=== PATIENT | male | born 1940 | race Caucasian/White ===

== ENCOUNTER 2016-12-20 07:43 | Inpatient (IN) | payer MEDICARE, BC ==
[~2016-12-20 07:43] MED LIST: Bupivacaine 0.5%/EPINEPHrine 1:200,000 50 ML MDV ONE
[2016-12-20] MEDS ORDERED: HYDROmorphone/Normal Saline 15 MG/30 ML PCA IV PRN (07:57)
[2016-12-20] MEDS ORDERED: Naloxone 0.4 MG/ML SDV IVPUSH PRN (07:57)
[2016-12-20] MEDS ORDERED: Albuterol/Ipratropium 3.0-0.5 MG/3 ML Neb Soln NEB ONE (08:30)
[2016-12-20] MEDS: Dextrose 5%-Lactated Ringers 1,000 ML IV SCH ×2 (08:55→11:38)
[2016-12-20] MEDS ORDERED: fentaNYL 250 MCG/5 ML SDV ONE (09:12)
[2016-12-20] MEDS ORDERED: Midazolam 1 MG/ML 2 ML SDV ONE (09:12)
[2016-12-20] MEDS ORDERED: ceFAZolin 2 GM in Premix Bag 1 BAG IV ONE (09:15)
[2016-12-20] MEDS ORDERED: Ondansetron 4 MG/2 ML SDV ONE (09:16)
[2016-12-20] MEDS ORDERED: Neostigmine Methylsulfate 1 MG/ML 5 ML Syringe ONE (09:16)
[2016-12-20] MEDS ORDERED: Dexamethasone 4 MG/ML SDV ONE (09:16)
[2016-12-20] MEDS ORDERED: Propofol 200 MG/20 ML SDV ONE (09:16)
[2016-12-20] MEDS ORDERED: Rocuronium 50 MG/5 ML Vial ONE (09:16)
[2016-12-20] MEDS ORDERED: Meropenem 500 MG SDV ONE (10:17)
[2016-12-20] MEDS ORDERED: Albuterol/Ipratropium 3.0-0.5 MG/3 ML Neb Soln INH PRN (12:42)
[2016-12-20] MEDS ORDERED: Dextrose 5%-Lactated Ringers 1,000 ML IV SCH (12:45)
[2016-12-20] MEDS ORDERED: Ondansetron 4 MG/2 ML SDV IVPUSH PRN (12:45)
[2016-12-20] MEDS: ceFAZolin 2 GM in Sodium Chloride 0.9% 50 ML IV SCH (17:06)
[2016-12-20] MEDS: Albuterol/Ipratropium 3.0-0.5 MG/3 ML Neb Soln INH SCH ×2 (21:50→22:58)
[2016-12-21] MEDS: ceFAZolin 2 GM in Sodium Chloride 0.9% 50 ML IV SCH ×2 (00:30→07:58)
[2016-12-21 06:46] VITALS: BP 135/91
[2016-12-21] MEDS ORDERED: Pantoprazole 40 MG Tab.CR PO SCH (07:30)
[2016-12-21] MEDS ORDERED: Acetaminophen/oxyCODONE 325-5 MG Tab PO PRN (07:46)
[2016-12-21] MEDS: Albuterol/Ipratropium 3.0-0.5 MG/3 ML Neb Soln INH SCH ×2 (08:17→11:21)
[2016-12-21] MEDS ORDERED: PARoxetine 20 MG Tab PO SCH (09:00)
[2016-12-21] MEDS ORDERED: Finasteride 5 MG Tab PO SCH (09:00)
--- NOTE | 2016-12-21 12:58 | OR ---
DATE OF PROCEDURE: 12/20/2016 PREOPERATIVE DIAGNOSES: 1. Incarcerated umbilical hernia. 2. Incisional hernia. POSTOPERATIVE DIAGNOSES: 1. Incarcerated umbilical hernia. 2. Non-Incarcerated incisional hernia. 3. Chronic left parasternal hernia. 4. Extensive intraabdominal adhesions. OPERATIVE PROCEDURES: 1. Diagnostic laparoscopy with lysis of adhesions and a repair of incarcerated umbilical hernia with mesh (94517). 2. Repair of non-incarcerated incisional hernia with mesh (16601). 3. Repair of chronic left parasternal diaphragmatic hernia (37373). 4. Placement of Vicryl mesh to displace small and large bowel from the mesh as well as the pelvic and abdominal sidewalls (30694). ANESTHESIA: General. ASSISTANTS: Lala Mendez PA-C and EVELYN Dunbar student. INDICATIONS FOR PROCEDURE: This is a 76-year-old presenting with an incarcerated umbilical hernia and this being firmly pressing more symptomatic. Also on examination was noted to have a diastasis recti. This in itself would not warrant a repair, but there was also a trocar site incisional hernia located within that field as well. The plan is to proceed with a diagnostic laparoscopy, laparotomy if necessary, and repair of the hernias with mesh. Potential risks including bleeding, infection, injury to underlying viscera, problems with hernias recurring, mesh becoming infected and lastly remote possibility of cardiopulmonary, septic, or hemorrhagic complications leading to were discussed, and the patient wishes to proceed. DETAILS OF PROCEDURE: The patient was taken to the operating room and placed in the supine position. After general endotracheal anesthesia was induced, a Davis catheter was inserted and the abdomen prepped and draped. In the left lateral abdominal wall, a transverse incision was made and the peritoneal cavity entered under direct vision with Optiview trocar, inflated to 15 mmHg pressure with CO2. Laparoscope was reinserted. No underlying trocar insertion site injuries were seen. Eventually then 4 additional 5-mm trocars were placed, 2 on the right and 2 on the left and general exploration was undertaken. As expected, the patient was known to have the incarcerated umbilical hernia and this contained some omentum along with preperitoneal fat within it. As this was dissected free, the patient had an intact overlying skin, but essentially just dermis at the level of the umbilicus. As one dissected then further upward removing some additional adhesions from the midepigastric area, the trocar site hernia was identified. The falciform ligament was lying within this and was reduced and divided up to the point almost the midportion of the liver anteriorly. During the course of that dissection, the patient was noted to have a parasternal diaphragmatic hernia. This was chronic in appearance and it could either be congenital or traumatic in terms of the underlying cause. This contained some preperitoneal fat along with omentum within it as well. This area was then reduced, and at that point, the abdominal wall measured out for the mesh to be placed. The initial mesh was a 20.3 x 25.[address] mesh with the balloon positioning system. The intended upper and lower aspects of the mesh with mesh going to be placed in the long axis in the vertical midline. The sutures were placed on the polypropylene side of the mesh and these being 2-0 Vicryl stitch actually was then soaked in antibiotic-containing saline solution and then brought in the intraperitoneal location. It was then folded and oriented such that polypropylene side of the mesh faced the abdominal wall. The stab wounds were made where the sutures were to be pulled up and then these were then pulled up along as well as the inflation catheter over the abdominal wall at the center point of the mesh. The balloon was then inflated, pushing the mesh up against the abdominal wall, this was affixed in circumferentially with several tacking screws. Upon completion of that, the patient was felt to have a wide margin around the umbilical hernia as well as the incisional hernia. There was, however, a relatively small margin left at the parasternal hernia site. The balloon from the original mesh was then removed and then a second piece of mesh, this being a ventral ST hernia patch without the balloon system measuring 11.4 cm. This was then placed directly over the center of the parasternal hernia and then pulled up and then affixed to the underlying abdominal wall with the absorbable tacking screws as well. At this point, all the areas appeared to be satisfactorily controlled. There had been quite extensive adhesions between the small bowel and the omentum and the anterior abdominal wall. These had been taken down to limit recurrent adhesion formation in that location as well as along the pelvic and abdominal sidewalls. A 12-inch segment of Vicryl mesh was then placed. This was placed underneath the mesh and then from there directed down towards the pelvis anteriorly and the pelvic sidewalls. At this point, no further problems were noted. The fascia at the 12-mm site was closed with 0 Vicryl stitch, and then with trocars removed, peritoneal cavity deflated, incision was closed with some 4-0 Vicryl skin stitch. Physician medical assistant internal medicine, Lala Mendez, played an essential role in assisting in this case, helping to position the patient, retract structures as needed as well as suturing and cutting sutures when indicated. Her presence improved patient's safety and decreased operative time. Fady Martinez MD /[id number]
--- NOTE | 2016-12-22 02:40 | DISCH ---
ADMISSION DIAGNOSES: Incarcerated umbilical hernia, non-incarcerated incisional hernia, and left parasternal hernia. DISCHARGE DIAGNOSES: Diagnostic laparoscopy with repair of incarcerated umbilical hernia, non-incarcerated incisional hernia, and left parasternal hernia. Date of surgery 12/20/2016. HISTORY: Jacinto Nagy is a pleasant 76-year-old male with the above hernias. After preoperative evaluation and discussion of possible risks and possible complications, he wished to proceed with surgical procedure. HOSPITAL COURSE: Jacinto had his hernia surgery on 12/20/2016. He had no operative complications. On postop day #1, his activity was good. He tolerated the diet. Pain was controlled. He was able to be discharged to home. PHYSICAL EXAMINATION: GENERAL: Jacinto Nagy is a pleasant 76-year-old male. VITAL SIGNS: Height is 6 feet 1 inch, weight is 207 pounds. TPR is 98.5, 75, 16. Blood pressure 135/91. HEENT: Negative. NECK: Supple. HEART: Regular rate and rhythm. LUNGS: Clear. ABDOMEN: Dressings dry and intact. Abdominal binder is on. EXTREMITIES: Without peripheral edema. DISPOSITION: Discharged to home. CONDITION: Stable and improving. FOLLOWUP APPOINTMENT: Lala Mendez PA-C on 12/27/2016 at 9:15 a.m. HOME MEDICATIONS: Percocet 5/325 mg 1 to 2 every 4 hours p.r.n. pain, #40. He is to resume his home medications. DIET AFTER DISCHARGE: Usual diet as tolerated. Drink 8 to 10 glasses of water a day. ACTIVITY: As tolerated. No lifting greater than 10 pounds for 6 weeks. Driving, do not drive on pain medication. Shower bathing, may shower. Notify provider if any fever, increased pain. Wound incision care, keep site clean and dry. Wear abdominal binder with a pressure dressing (rolled up washcloth or rolled Kerlix) over hernia site. SPECIAL INSTRUCTION: Use incentive spirometer 10 times every hour while awake for two weeks.
== END 2016-12-21 11:15 | disposition home or self-care (01) | DRG 328 ==
LOC: JP.SDSSCHI 07:43 → JP.SDS 07:43 → EDSTATUS 11:30 → JP.MS 11:35
PROVIDERS: ADMIT Surgery; ATTEND Surgery
PROC: 0BQS4ZZ (ICD-10-PCS; principal; 2016-12-20)
PROC: 0WUF4JZ Supplement Abdominal Wall with Synthetic Substitute, Percutaneous Endoscopic Approach (ICD-10-PCS; principal; 2016-12-20)
PROC: 0WQF4ZZ Repair Abdominal Wall, Percutaneous Endoscopic Approach (ICD-10-PCS; principal; 2016-12-20)
PROC: 0BQR4ZZ (ICD-10-PCS; principal; 2016-12-20)
PROC: 3E0M05Z Introduction of Adhesion Barrier into Peritoneal Cavity, Open Approach (ICD-10-PCS; principal; 2016-12-20)
DX: K42.0 Umbilical hernia with obstruction, without gangrene (principal); K43.2 Incisional hernia without obstruction or gangrene; H90.5 Unspecified sensorineural hearing loss; M19.91 Primary osteoarthritis, unspecified site; J45.909 Unspecified asthma, uncomplicated; N40.0 Benign prostatic hyperplasia without lower urinary tract symptoms; G60.3 Idiopathic progressive neuropathy; K46.9 Unspecified abdominal hernia without obstruction or gangrene; K66.0 Peritoneal adhesions (postprocedural) (postinfection)
CPT/HCPCS: 36415; 80053; 83735; 84100; 85027; 88302; 93005; 94762; A9270-GY; C1781; J0690; J1100; J1170; J2185; J2250; J2405; J2704; J3010; J7042; J7050; J7620

== ENCOUNTER 2017-01-21 13:07 | Emergency (ER) | payer MEDICARE, BC ==
[2017-01-21 13:36] VITALS: BP 135/77
--- NOTE | 2017-01-21 13:56 | EDM.PDOC ---
ED HPI GENERAL MEDICAL PROBLEM - General Chief Complaint: Neurological Problem Stated Complaint: DIZZY AND LIGHTHEADED Time Seen by Provider: 01/21/17 13:28 Source of Information: Reports: Patient, Family, RN Notes Reviewed History Limitations: Reports: No Limitations - History of Present Illness INITIAL COMMENTS - FREE TEXT/NARRATIVE: 76-year-old gentleman presents emergency department today with complaint of dizziness with fall. States he is out working in the garden was kneeling down stood up felt back to the ground, denies any injury upon hitting the ground but states this event happened 3 times denies any shortness of breath chest pain nausea or vomiting states he has been drinking fluids - Related Data Allergies Allergy/AdvReac Type Severity Reaction Status Date / Time seasonal Allergy Cannot Uncoded 01/21/17 13:28 Remember Home Meds: Home Meds Albuterol [IJD: Ventolin HFA] 2 puff INH Q4H PRN 12/18/16 [History] Ascorbic Acid 500 mg PO DAILY 12/18/16 [History] Aspirin 81 mg PO DAILY 12/18/16 [History] Cholecalciferol (Vitamin D3) [Vitamin D3] 400 unit PO DAILY 12/18/16 [History] Cyanocobalamin (Vitamin B-12) [Cyanocobalamin Injection] 1,000 mcg IJ .Q30D [History] Finasteride [Proscar] 5 mg PO DAILY 12/18/16 [History] Flunisolide [Nasalide Nasal [place]] 0 ml NASBOTH BID 12/18/16 [History] Mometasone Furoate [Asmanex] 2 spray IH DAILY PRN 12/18/16 [History] Omeprazole 20 mg PO DAILY 12/18/16 [History] PARoxetine [Paxil] 10 mg PO BEDTIME 12/18/16 [History] Vitamin B Complex [B Complex] 1 each PO DAILY 12/18/16 [History] Loratadine [Claritin] 10 mg PO DAILY 12/20/16 [History] Past Medical History HEENT History: Reports: Allergic Rhinitis, Impaired Vision Cardiovascular History: Reports: Syncope Other Cardiovascular History: known to pass out with medical procedures Respiratory History: Reports: Asthma Genitourinary History: Reports: BPH Neurological History: Reports: Neuropathy, Peripheral, Other (See Below) Other Neuro History: progressive peripheral neuropathy Dermatologic History: Reports: Other (See Below) Other Dermatologic History: pilonidal cyst - Infectious Disease History Infectious Disease History: Reports: Measles Other Infectious Disease History: measles as a child - Past Surgical History HEENT Surgical History: Reports: Other (See Below) Other HEENT Surgeries/Procedures: parotid gland tumor, radiation, benign Respiratory Surgical History: Reports: None GI Surgical History: Reports: Cholecystectomy, Hernia, Inguinal, Hernia Repair/ Other Male Surgical History: Reports: Prostate Biopsy Neurological Surgical History: Reports: None Musculoskeletal Surgical History: Reports: Arthroscopic Knee, Knee Replacement Social & Family History - Family History Family Medical History: Noncontributory - Tobacco Use Smoking Status *Q: Never Smoker Used Tobacco, but Quit: Yes Month Tobacco Last Used: 1949 Second Hand Smoke Exposure: No - Caffeine Use Caffeine Use: Reports: Coffee, Soda Other Caffeine Use: 4-5 cups caffienated beverages - Alcohol Use Days Per Week of Alcohol Use: 2 Number of Drinks Per Day: 1 Total Drinks Per Week: 2 - Recreational Drug Use Recreational Drug Use: No ED ROS GENERAL - Review of Systems Review Of Systems: See Below Constitutional: Reports: No Symptoms HEENT: Reports: No Symptoms Respiratory: Reports: No Symptoms Cardiovascular: Reports: Syncope GI/Abdominal: Reports: No Symptoms : Reports: No Symptoms Musculoskeletal: Reports: No Symptoms Skin: Reports: No Symptoms Neurological: Reports: No Symptoms ED EXAM, DIZZINESS - Physical Exam Exam: See Below Text/Narrative:: General: Male, not in any distress, alert and oriented x3 HEENT: head is atraumatic normocephalic, eyes pupils equal round reactive to light, sclera clear no conjunctivitis appreciated, extraocular eye movements intact. Ears hearing aids in place bilaterally. Nose no septal deviation, nares are clear, no blood present. Mouth mucosa is moist and pink no erythema or exudate noted in soft palate, tongue is midline uvula is midline, dentition is intact. Neck: Supple no thyromegaly no tracheal deviation. Nodes: Cervical nodes subclavicular nodes nontender no palpable lymphadenopathy noted. Lungs: clear to auscultation bilaterally with symmetrical respirations, no adventitious noise appreciated. CV: Regular rate and rhythm S1 and S2 appreciated no murmurs rubs or gallops noted. Abdomen: Soft, nontender, no palpable masses or organomegaly appreciated, no distention no guarding bowel sounds are present, . Neuro: Cranial nerves II through XII grossly intact, power is 5 out 5 in upper and lower extremities, can do finger to nose without difficulty no dysdiadochokinesis no difficulty with rapid alternating movements can do heel-to -abarca without difficulty Romberg is negative, has adequate gait can do heel to toe, can toe walk and heel walk no cerebellar dysfunction no focal neurologic deficit Skin: Warm and dry, intact Extremities: No lower extremity edema appreciated, . Course - Vital Signs Last Recorded V/S: Last Vital Signs Temp 98.3 F 01/21/17 13:25 Pulse 74 01/21/17 13:25 Resp 15 01/21/17 13:25 BP 135/77 01/21/17 13:25 Pulse Ox 98 01/21/17 13:25 - Orders/Labs/Meds Orders: Active Orders 24 hr Category Date Time Status EKG Documentation Completion [RC] ASDIRECTED Care 01/21/17 13:53 Active EKG 12 Lead [EK] Stat Ther 01/21/17 13:52 Ordered Labs: Laboratory Tests 01/21/17 01/21/17 01/21/17 Range/Units 14:00 14:00 14:43 WBC 6.3 (4.5-11.0) K/uL RBC 4.70 (4.30-5.90) M/uL Hgb 13.8 (12.0-15.0) g/dL Hct 41.6 (40.0-54.0) % MCV 89 (80-98) fL MCH 29 (27-31) pg MCHC 33 (32-36) % Plt Count 197 (150-400) K/uL Neut % (Auto) 58 (36-66) % Lymph % (Auto) 23 L (24-44) % [place] % (Auto) 9 H (2-6) % Eos % (Auto) 9 H (2-4) % Baso % (Auto) 1 (0-1) % Sodium 140 (140-148) mmol/L Potassium 4.3 (3.6-5.2) mmol/L Chloride 106 (100-108) mmol/L Carbon Dioxide 30 (21-32) mmol/L Anion Gap 3.9 L (5.0-14.0) mmol/L BUN 13 (7-18) mg/dL Creatinine 1.1 (0.8-1.3) mg/dL Est Cr Clr Drug Dosing 63.56 mL/min Estimated GFR (MDRD) > 60 (>60) Glucose 99 (74-106) mg/dL Calcium 8.2 L (8.5-10.1) mg/dL Total Bilirubin 0.4 (0.2-1.0) mg/dL AST 16 (15-37) U/L ALT 16 (12-78) U/L Alkaline Phosphatase 64 (46-116) U/L Troponin I < 0.017 (0.000-0.056) ng/mL Total Protein 6.6 (6.4-8.2) g/dL Albumin 2.8 L (3.4-5.0) g/dL Globulin 3.8 H (2.3-3.5) g/dL Albumin/Globulin Ratio 0.7 L (1.2-2.2) Urine Color Yellow Urine Appearance Clear Urine pH 7.0 (4.5-8.0) Ur Specific [place] 1.005 L (1.008-1.030) Urine Protein Negative (NEGATIVE) mg/dL Urine Glucose (UA) Normal (NEGATIVE) mg/dL Urine Ketones Negative (NEGATIVE) mg/dL Urine Occult Blood Negative (NEGATIVE) Urine Nitrite Negative (NEGAITVE) Urine Bilirubin Negative (NEGATIVE) Urine Urobilinogen Normal (NORMAL) mg/dL Ur Leukocyte Esterase Negative (NEGATIVE) Urine RBC Not seen (0-5) Urine WBC Not seen (0-5) Ur Epithelial Cells Not seen Amorphous Sediment Rare Urine Bacteria Not seen Urine Mucus Not seen Departure - Departure Time of Disposition: 15:18 Disposition: Home, Self-Care 01 Condition: Fair Clinical Impression: Orthostatic dizziness - Discharge Information Forms: ED Department Discharge Additional Instructions: Change or finasteride to a p.m. dose prior to going to bed start this tomorrow, keep your follow-up appointment with Dr. Aceves on - My Orders Last 24 Hours: My Active Orders 01/21/17 13:52 EKG 12 Lead [EK] Stat 01/21/17 13:53 EKG Documentation Completion [RC] ASDIRECTED - Assessment/Plan Last 24 Hours: My Active Orders 01/21/17 13:52 EKG 12 Lead [EK] Stat 01/21/17 13:53 EKG Documentation Completion [RC] ASDIRECTED Plan: Assessment Acuity = acute Site and laterality = dizziness complicated with a patient known history of BPH on finasteride Etiology = possibly related to hypotension related to medication Manifestations = none Location of injury = Home Lab values = CBC, CMP, troponin, urinalysis unremarkable Plan He did admit that he mixed up his p.m. medications with his a.m. medications and he had taken a double dose of his finasteride tried today, plan is to move his medication prior to bedtime so he's got a hold off on his evening dose of meds and will add the finasteride on a p.m. dose Patient was in agreement with the plan all questions were answered, they were instructed to return to the emergency department or call for worsening symptoms. This note was dictated using [employer] voice recognition software please call with any questions.
== END 2017-01-21 15:31 | disposition home or self-care (01) ==
LOC: JP.ED 13:07
DX: R42 Dizziness and giddiness (principal); H54.7 Unspecified visual loss; J45.909 Unspecified asthma, uncomplicated; G60.3 Idiopathic progressive neuropathy; Z91.09 Other allergy status, other than to drugs and biological substances; Z79.82 Long term (current) use of aspirin; Z79.899 Other long term (current) drug therapy
CPT/HCPCS: 36415; 80053; 81001; 84484; 85025; 93005; 93010; 99284; 99284-25